=== PATIENT | female | born 1990 | race Caucasian/White ===

== ENCOUNTER 2021-07-27 10:37 | Outpatient (CLI) | payer OTHER ==
[2021-07-27 17:44] LABS: HCT - HEMATOCRIT 42.6 % (37.0-47.0); MEAN CORPUSCULAR HEMOGLOBIN 27.5 pg (27.0-31.0); MEAN CORPUSCULAR HGB CONC 32.9 g/dL (32.0-36.0); MEAN CORPUSCULAR VOLUME 83.7 fL (81.0-99.0); MEAN PLATELET VOLUME 10.1 fL (7.9-10.8); RED BLOOD COUNT 5.09 10^6/uL (4.20-5.40); RED CELL DISTRIBUTION WIDTH 12.4 % (12.0-15.0); WHITE BLOOD COUNT 4.1 x10^3/uL (4.8-10.8)
[2021-07-27 18:02] LABS: ALBUMIN 4.3 g/dL (3.2-5.5); ALBUMIN/GLOBULIN RATIO 1.5 (1.0-2.2); BILIRUBIN,TOTAL 0.7 mg/dL (0.2-1.0); CALCIUM 9.2 mg/dL (8.5-10.3); CREATININE 0.8 mg/dL (0.4-1.0); POTASSIUM 3.7 mmol/L (3.5-5.0); TOTAL PROTEIN 7.1 g/dL (6.7-8.2)
[2021-07-27 18:20] LABS: THYROID STIMULATING HORMONE 2.25 uIU/mL (0.34-5.60)
[2021-07-27 18:26] LABS: PROLACTIN 12.52 ng/mL
[2021-07-27 18:48] LABS: FOLLICLE STIMULATING HORMONE 6.87 mIU/mL
[2021-07-27 20:44] LABS: ESTIMATED AVERAGE GLUCOSE 108 mg/dL (70-100); HEMOGLOBIN A1c% 5.4 % (4.27-6.07)
== END 2021-07-27 10:38 | disposition home or self-care (01) ==
LOC: LAB.N 10:37
PROVIDERS: ATTEND Obstetrics & Gynecology
DX: Z00.00 Encounter for general adult medical examination without abnormal findings (principal); Z13.1 Encounter for screening for diabetes mellitus
CPT/HCPCS: 36415; 80053; 82306; 82397; 82670; 83001; 83036; 84146; 84443; 85027

== ENCOUNTER 2022-02-10 06:23 | Emergency (ER) | payer OTHER ==
[2022-02-10] MEDS ORDERED: SODIUM CHLORIDE 0.9% 1,000 ML IV STA ×2 (06:55→07:28)
[2022-02-10 07:15] LABS: ALBUMIN 3.4 g/dL (3.2-5.5); BILIRUBIN,TOTAL 0.7 mg/dL (0.2-1.0); CREATININE 0.5 mg/dL (0.4-1.0); POTASSIUM 3.4 mmol/L (3.5-5.0); TOTAL PROTEIN 6.8 g/dL (6.7-8.2)
[2022-02-10 07:26] LABS: BASOPHILS % (AUTO) 0.3 %; EOSINOPHILS # (AUTO) 0.1 10^3/uL (0.0-0.7); EOSINOPHILS % (AUTO) 0.9 %; HCT - HEMATOCRIT 39.2 % (37.0-47.0); HGB - HEMOGLOBIN 13.4 g/dL (12.0-16.0); LYMPHOCYTES # (AUTO) 1.5 10^3/uL (1.5-3.5); LYMPHOCYTES % (AUTO) 21.5 %; MEAN CORPUSCULAR HEMOGLOBIN 27.9 pg (27.0-31.0); MEAN CORPUSCULAR HGB CONC 34.2 g/dL (32.0-36.0); MEAN CORPUSCULAR VOLUME 81.7 fL (81.0-99.0); MEAN PLATELET VOLUME 9.4 fL (7.9-10.8); MONOCYTES # (AUTO) 0.6 10^3/uL (0.0-1.0); MONOCYTES % (AUTO) 8.2 %; NEUTROPHILS # (AUTO) 4.7 10^3/uL (1.5-6.6); NEUTROPHILS % (AUTO) 68.8 %; PLT - PLATELET COUNT 277 10^3/uL (130-450); RED CELL DISTRIBUTION WIDTH 12.2 % (12.0-15.0); WHITE BLOOD COUNT 6.9 x10^3/uL (4.8-10.8)
[2022-02-10] MEDS ORDERED: diphenhydrAMINE INJ 50 MG/ML VIAL IVP STA (07:28)
[2022-02-10] MEDS ORDERED: METOCLOPRAMIDE 10 MG/2 ML VIAL IVP STA (07:28)
[2022-02-10] MEDS ORDERED: ACETAMINOPHEN 1,000 MG/100 ML 1,000 MG/100 ML BAG IV ONE (07:29)
--- NOTE | 2022-02-10 07:40 | ED Physician Documentation ---
History of Present Illness - Stated complaint Stated Complaint: HEAD PX/VOMITING - Chief complaint Chief Complaint: Neuro - History obtained from History obtained from: Patient - Additonal information Additional information: Patient is a 31-year-old female presenting for evaluation of headache that is in the back of her head and behind her eyes that she describes as throbbing in nature. Is been present since Sunday night.She does have a history of headaches but None that have lasted this long. She is approximately 13 weeks , G2, P0 with a history of a miscarriage. She is had no complications with this . She has had morning sickness which is been exacerbated by the headache.She has been using a Tylenol 500 mg every 6 hours and does not use anything at home for the nausea. Yesterday she was not able to keep anything down. She denies abdominal pain, vaginal bleeding or cramping, dysuria. Her care is with the midwives.She denies recent illness, chest pain, d ifficulty breathing, Fevers. Review of Systems Constitutional: denies: Fever Nose: denies: Congestion Throat: denies: Sore throat Cardiac: denies: Chest pain / pressure Respiratory: denies: Dyspnea, Cough GI: reports: Nausea, Vomiting. denies: Abdominal Pain : denies: Dysuria Musculoskeletal: denies: Back pain Neurologic: reports: Headache PD PAST MEDICAL HISTORY - Past Medical History Past Medical History: No - Past Surgical History Past Surgical History: No - Present Medications Home Medications: Ambulatory Orders Medication Instructions Recorded Confirmed Ondansetron Odt [Zofran] 4 mg TL Q6H PRN #10 tablet 02/10/22 - Allergies Allergies/Adverse Reactions: Allergies Allergy/AdvReac Type Severity Reaction Status Date / Time No Known Drug Allergies Allergy Verified 02/10/22 07:05 - Social History Does the pt smoke?: No Smoking Status: Never smoker Does the pt drink ETOH?: No Does the pt have substance abuse?: No - Immunizations Immunizations are current?: Yes - POLST Patient has POLST: No PD ED PE NORMAL - General General: Alert and oriented X 3, No acute distress, Well developed/nourished - HEENT HEENT: Atraumatic, PERRL, EOMI, Moist mucous membranes, Pharynx benign - Neck Neck: Supple, no meningeal sign, No bony TTP - Cardiac Cardiac: RRR, No murmur - Respiratory Respiratory: No respiratory distress, Clear bilaterally - Abdomen Abdomen: Soft, Non tender, Non distended - Derm Derm: Warm and dry - Extremities Extremities: No calf tenderness / cord - Neuro Neuro: Alert and oriented X 3, No motor deficit, No sensory deficit, Normal speech Results - Vitals Vitals: Vital Signs - 24 hr 02/10/22 02/10/22 06:33 08:49 Temperature 37.1 C Heart Rate 89 93 Respiratory 16 17 Rate Blood Pressure 121/76 97/53 L O2 Saturation 98 100 Oxygen O2 Source Room air - Labs Labs: Laboratory Tests 02/10/22 02/10/22 02/10/22 06:47 06:47 08:45 WBC 6.9 RBC 4.80 Hgb 13.4 Hct 39.2 MCV 81.7 MCH 27.9 MCHC 34.2 RDW 12.2 Plt Count 277 MPV 9.4 Neut # (Auto) 4.7 Lymph # (Auto) 1.5 [place] # (Auto) 0.6 Eos # (Auto) 0.1 Baso # (Auto) 0.0 Absolute Nucleated RBC 0.00 Nucleated RBC % 0.0 Sodium 134 L Potassium 3.4 L Chloride 101 Carbon Dioxide 22 Anion Gap 11.0 BUN 5 L Creatinine 0.5 Estimated GFR (MDRD) 145 Glucose 90 Calcium 9.0 Total Bilirubin 0.7 AST 14 ALT 15 Alkaline Phosphatase 41 L Total Protein 6.8 Albumin 3.4 Globulin 3.4 Albumin/Globulin Ratio 1.0 Lipase 24 Urine Color YELLOW Urine Clarity CLEAR Urine pH 6.[address] 1.015 Urine Protein NEGATIVE Urine Glucose (UA) NEGATIVE Urine Ketones 40 H Urine Occult Blood NEGATIVE Urine Nitrite NEGATIVE Urine Bilirubin NEGATIVE Urine Urobilinogen 0.2 (NORMAL) Ur Leukocyte Esterase NEGATIVE Ur Microscopic Review NOT INDICATED Urine Culture Comments NOT INDICATED Procedures - Bedside sono Bedside sono by EMP: Bedside ultrasound performed to evaluate . Positive IUP. heart rate estimated around 150. Positive activity. PD MEDICAL DECISION MAKING - ED course Complexity details: reviewed results, re-evaluated patient, d/w patient, d/w family ED course: Patient presenting for evaluation of headache with nausea and vomiting. She is approximately 13 weeks . Her neuro exam is normal. She does not have any red flag signs or symptoms in regards to her headache.She has no abdominal complaints.Her ultrasound done at the bedside does demonstrate an IUP With appropriate cardiac activity and movement.She is feeling better with medications received here. Her urine is negative for infection.I did offer her nausea medications for home as she has been dealing with morning sickness through the . She is agreeable to this. 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 Departure - Departure Disposition: Home, Self Care Clinical Impression: Headache, Nausea/vomiting in Condition: Stable Instructions: ED Preg Morning Sickness, ED Headache Migraine Prescriptions: Ondansetron Odt [Zofran] 4 mg TL Q6H PRN #10 tablet PRN Reason: Nausea / Vomiting Comments: Please continue to stay hydrated and get plenty of rest. You can continue to use acetaminophen as needed for mild headache. I have sent a prescription for nausea medications to [facility] in [place]. Please continue to follow-up with your supervisor of research as scheduled. If any worsening symptoms return to the ER. Forms: Activity restrictions Discharge Date/Time: 02/10/22 10:09
[2022-02-10 08:51] VITALS: BP 97/53
[2022-02-10 08:53] LABS: BILIRUBIN,URINE NEGATIVE (NEGATIVE); GLUCOSE, URINE (UA) NEGATIVE (NEGATIVE); KETONES,URINE (UA) 40 mg/dL (NEGATIVE); LEUKOCYTE ESTERASE, URINE NEGATIVE (NEGATIVE); NITRITE,URINE NEGATIVE (NEGATIVE); OCCULT BLOOD,URINE NEGATIVE (NEGATIVE); PROTEIN,URINE NEGATIVE (NEGATIVE); UROBILINOGEN,URINE 0.2 (NORMAL) E.U./dL (NORMAL)
[2022-02-10 08:57] LABS: CLARITY,URINE CLEAR (CLEAR)
== END 2022-02-10 10:09 | disposition home or self-care (01) ==
LOC: ED 06:23
DX: O99.891 Other specified diseases and conditions complicating pregnancy (principal); R51.9 Headache, unspecified; O21.9 Vomiting of pregnancy, unspecified; Z3A.13 13 weeks gestation of pregnancy
CPT/HCPCS: 36415; 80053; 81003; 83690; 85025; 96365; 96375; 99283; 99284; J0131; J1200; J2765; 81001; 87086